=== PATIENT | female | born 1955 | race Caucasian/White ===

== ENCOUNTER 2021-11-02 12:31 | Emergency (ER) | payer MEDICARE ==
[~2021-11-02] VITALS: Ht 165.1 cm; Wt 68.0 kg
[2021-11-02 14:48] LABS: Basophils # (auto) 0 10 ^3/uL (0-0.2); Basophils % (auto) 0.5 % (0.0-2.0); Eosinophils # (auto) 0.1 10 ^3/uL (0-0.8); Eosinophils % (auto) 1.9 % (0.0-7.0); Hematocrit 37.9 % (36.0-46.0); Lymphocytes # (auto) 1.2 10 ^3/uL (0.4-5.4); Lymphocytes % (auto) 18.2 % (10.0-50.0); Mean Corpuscular Hemoglobin 33.3 pg (28.0-32.0); Mean Corpuscular Hgb Conc. 34.4 g/dL (32.0-36.0); Mean Corpuscular Volume 96.7 fL (80.0-100.0); Monocytes # (auto) 0.6 10 ^3/uL (0-1.3); Monocytes % (auto) 8.6 % (0.0-12.0); Neutrophils # (auto) 4.8 10 ^3/uL (1.6-8.6); Neutrophils % (auto) 70.8 % (37.0-80.0); Red Blood Cells 3.92 10^6/uL (4.0-5.20); Red Cell Distribution Width 12.1 % (11.8-14.3); White Blood Cell 6.8 10^3/uL (4.4-10.8)
[2021-11-02 15:04] LABS: Calcium 8.7 mg/dL (8.5-10.1); Potassium 3.9 mmol/L (3.5-5.1)
[2021-11-02 15:06] LABS: BUN/Creatinine Ratio 16.4
[2021-11-02 15:09] LABS: Bilirubin, Total 0.4 mg/dL (0.2-1.0)
[2021-11-02] MEDS ORDERED: cloNIDine HCL 0.1 MG TAB PO ONE (15:45)
[2021-11-02 15:48] VITALS: BP 186/85
== END 2021-11-02 15:55 | disposition home or self-care (01) ==
LOC: ER 12:31
DX: I10 Essential (primary) hypertension (principal); R42 Dizziness and giddiness; E78.5 Hyperlipidemia, unspecified; Z88.0 Allergy status to penicillin; Z88.2 Allergy status to sulfonamides
CPT/HCPCS: 36415; 80053; 85025; 93005